=== PATIENT | female | born 1960 | race Two or more races ===

== ENCOUNTER 2024-09-26 10:11 | Emergency (ER) | payer BC, SELFPAY ==
[2024-09-26 10:34] VITALS: BP 130/74; PULSE 53; RESP 18; TEMP 36.3; O2SAT 97; BMI 34.8
--- OUTSIDE RECORDS SUMMARY | 2024-09-26 15:16 | XMS_ITS | Clinical Summary ---
Author Organization [facility] Address [place], [place] [address] Care Team Providers Care Cranberry Sorter Name Role Phone None Primary Care Provider Unavailabl e Allergies No known active allergies Medications metFORMIN (GLUCOPHAGE XR) 500 mg Extended-Releas e tabletIndicatio ns:Type 2 diabetes mellitus with hyperglycemia, without long-term current use of insulin (HC) 2 pills oral daily with evening meal for one week then 4 pills daily with a meal. 360 Tablet 3 Active blood-glucose meterIndication s:Type 2 diabetes mellitus with hyperglycemia, without long-term current use of insulin (HC) As directed. Dispense meter, test strips, lancets covered by pt ins. E11.65 NIDDM type II, uncontrolled - Test 2 times/day. Reason: New diabetes 1 Each 3 Active glipiZIDE extended-releas e (GLUCOTROL XL) 2.5 mg Extended-Releas e tabletIndicatio ns:Type 2 diabetes mellitus with hyperglycemia, without long-term current use of insulin (HC) Take 1 Tablet (2.5 mg) by mouth once daily before a meal. 30 Tablet 1 3 Active Active Problems Problem Noted Date Diagnosed Date Type 2 diabetes mellitus wit h hyperglycemia, without long-term current use of insulin 11/24/2022 Immunizations Name Administration Dates Next Due Influenza, IIV3 (Age >=3 years) 07/19/2014 Influenza, IIV4 (=>6mos) MDV 08/05/2015 MMRV 08/05/2015 Tdap 08/05/2015 Family History Medical History Relation Name Comments Benign prostatic hyperplasia Father Relation Name Status Comments Father Mother Alive Social History Tobacco Use Types Packs/Day Years Used Date Smoking Tobacco: Never Smokeless Tobacco: Never Tobacco Cessation:Counseling Given: Not Answered Alcohol Use Standard Drinks/Week Comments Never 0 (1 standard drink = 0.6 oz pur e alcohol) Social Connections Answer Date Recorded Frequency of Communication with Friends and Fami ly Not on file 12/04/2023 Financial Resource Strain Answer Date R ecorded Difficulty of Paying Living Expenses 3 11/24/2022 Difficulty of Paying Living Expenses Not on file 11/24/2022 Food Insecurity Answer Date Recorded Worried About Running Out of Food in the Last Ye ar 1 11/24/2022 Transportation Needs Answer Date Record ed Lack of Transportation (Medical) 1 11/24/2022 Housing Stability Answer Date Recorded Unable to Pay for Housing in the Last Year 1 11/24/2022 Comments No Sex and Gender Information Value Date Recorded Sex Assigned at Not on file Legal Sex Female 1:15 PM PHERESIS NURSE Gender Identity Not on file Sexual Orientation Not on file Obstetrics History Last Filed Vital Signs Vital Sign Reading Time Taken Comments Blood Pressure 112/60 11/24/2022 3:33 PM PHERESIS NURSE Pulse 72 11/24/2022 3:33 PM PHERESIS NURSE Temperature - - Respiratory Rate - - Oxygen Saturation - - Inhaled Oxygen Concentration - - Weight 73 kg (160 lb 14.4 oz) 11/24/2022 3:33 PM PHERESIS NURSE Height - - Body Mass Index - - Plan of Treatment Health Maintenance Due Date Last Done Comments Depression screening for age 12+ 1974 HIV for age 15-65 1977 BMI (ht and wt on same day) for age 18+ 1980 Hepatitis C screening for age 18-79 1980 Pneumococcal series for age 50+ (1 of 2 - PCV) 1981 Pap test for age 21-65 12/23/1983 Colonoscopy through age 75 12/23/2007 Lipids for age 45-75 12/23/2007 Mammogram for age 45-75 12/23/2007 Zoster (shingles) series for age 50+ (1 of 2) 2012 COVID-19 vaccine series (2023- season) 2024 Influenza for age 50-64 05/21/2024 08/05/2015, 07/19 Tetanus booster 08/05/2025 08/05/2015 RSV vaccine for adults or pr egnancy (1 - 1-dose 75+ series) 2037 Tdap Completed 08/05/2015 Insurance [facility] Care Teams Cranberry Sorter Relationship Specialty Start Date End Date None . PCP - General 11/20/22
== END 2024-09-26 14:55 | disposition left against medical advice (07) ==
LOC: ED 15:14
DX: Z53.21 Procedure and treatment not carried out due to patient leaving prior to being seen by health care provider (principal)

== ENCOUNTER 2024-09-26 16:06 | Outpatient (CLI) | payer BC, SELFPAY | END 2024-09-26 16:07 | disposition home or self-care (01) | LOC: NFLDUCREF 16:08 | PROVIDERS: Visit Provider Nurse Practitioner Family | DX: R82.90 Unspecified abnormal findings in urine (principal); R51.9 Headache, unspecified; R42 Dizziness and giddiness | CPT/HCPCS: 87086 ==